=== PATIENT | female | born 1995 | race Caucasian/White ===

== ENCOUNTER 2019-01-02 11:25 | Emergency (ER) | payer OTHER ==
[~2019-01-02] VITALS: Ht 157.5 cm; Wt 90.0 kg
[~2019-01-02 11:25] MED LIST: AMOX1TAB10 PO; IBUP800T48 PO; ONDA4TAB8 PO
[2019-01-02 11:28] VITALS: BP 141/88; PULSE 88; RESP 18; Ht 157.5 cm; Wt 90.0 kg
[2019-01-02] MEDS ORDERED: ONDANSETRON (ODT) 4 MG TAB ODT STA (13:02)
== END 2019-01-02 13:23 | disposition home or self-care (01) ==
LOC: FTE 11:25
DX: J06.9 Acute upper respiratory infection, unspecified (principal); H66.003 Acute suppurative otitis media without spontaneous rupture of ear drum, bilateral
CPT/HCPCS: 81025; 99283